=== PATIENT | female | born 1975 | race Caucasian/White ===

== ENCOUNTER 2021-02-18 22:06 | Emergency (ER) | payer SELFPAY ==
[2021-02-18 22:11] VITALS: BP 161/92; PULSE 96; RESP 18; TEMP 36.4; O2SAT 97; BMI 38.4
--- NOTE | 2021-02-18 23:04 | ED_ITS ---
HPI - General Adult General Chief complaint: General Medical Stated complaint: Breast pain Time Seen by Provider: 02/18/21 23:04 Source: patient Mode of arrival: ambulatory History of Present Illness HPI narrative: 45-year-old female who presents with an isolated episode of blood from right nipple and then noticed a small raised area at the nipple ?opening?. She denies any family history of breast cancer, denies any history of smoke cig arette smoking or prior mammograms. Related Data Allergies Allergy/AdvReac Type Severity Reaction Status Date / Time lidocaine [LIDOCAINE] Allergy Mild SHORTNESS Verified 02/18/21 22:11 OF BREATH Review of Systems Review of Systems: Pertinent positives and negatives as stated in HPI and 10 point review of systems is otherwise negative. [facility] Past Medical History Source: nursing notes reviewed Medical History Obese Social History Social History Alcohol intake: unknown Smoking Status: Never smoker Substance Use Type: Unknown Advance Directives: No Advance Directives Information Provided: Yes Patient : No Physical Exam Vital Signs: Vital Signs: Last Vital Signs Temp 97.6 F 02/18/21 22:11 Pulse 96 02/18/21 22:11 Resp 18 02/18/21 22:11 BP 161/92 H 02/18/21 22:11 Pulse Ox 97 02/18/21 22:11 Body Mass Index 38.4 VITAL SIGNS: Reviewed. GENERAL: Well developed, well nourished, in no acute distress. HEAD: Normocephalic/atraumatic EYES: PERRLA, EOMI OROPHARYNX: no oral lesions noted, posterior pharynx clear NECK: Supple, no adenopathy LUNGS: Normal breath sounds. No adventitious sounds or accessory muscle use. SpO2<97> RIGHT BREAST: [Sil[place] Brusher-Lindsay] There is a noted red swelling at the 10 o'clock position of the nipple without ability to express any fluid, no erythema/induration/peau de orange CARDIOVASCULAR: Regular rate and rhythm without noted murmurs ABDOMEN: Obese, Soft, non-tender, non-distended with bowel sounds. NEUROLOGIC: Alert and oriented x 4. Course Course Course Narrative: 45-year-old female with history and clinical presentation concerning for small defect and the fact that patient reports small amount of blood from nipple earlier. Although there is no evidence nipple discharge at this time to include no evidence of infection. Patient strongly encouraged to have this further evaluated and possibly biopsied. She was encouraged to follow-up with either primary care provider which could include a nougat candy maker helper. Patient was provided with a list of primary care providers that she would be able to establish care with. Discharge Plan Discharge Clinical Impression: Abnormal nipple Patient Disposition: Home, Self-Care Instructions: Breast Mass (ED), Nipple Discharge (ED) Additional Instructions: Return to the emergency room for any acute worsening of your symptoms. Referrals: [facility] [Outside] - 2 days (Evaluation for right nipple abnormality)
== END 2021-02-18 23:37 | disposition home or self-care (01) ==
PROVIDERS: Emergency Provider Student in an Organized Health Care Education/Training Program
DX: N63.11 Unspecified lump in the right breast, upper outer quadrant (principal); E66.9 Obesity, unspecified
CPT/HCPCS: 99284

== ENCOUNTER 2021-09-19 18:55 | Emergency (ER) | payer SELFPAY ==
--- NOTE | ~2021-09-19 | XR_ITS ---
EXAMINATION: XR ANKLE, RIGHT CLINICAL INFORMATION: Right ankle injury TECHNIQUE: AP, lateral, and mortise views of the right ankle. FINDINGS: There is soft tissue swelling bilaterally, lateral greater than medial. Ankle mortise appears stable. No joint effusion is detected. No fracture is seen. XR/XR ankle RT min 3V IMPRESSION: Soft tissue swelling without fracture.
[2021-09-19 19:47] VITALS: BP 144/97; PULSE 86; RESP 18; TEMP 36.6; O2SAT 97; BMI 38.8
--- NOTE | 2021-09-19 19:59 | ED.LOWEXIN ---
HPI - Extremity Injury (Lower) General Chief Complaint: Extremity Injury, Lower Stated Complaint: ankle injury Source: patient Mode of arrival: ambulatory Limitations: no limitations History of Present Illness HPI Narrative: 46-year-old female presents with right ankle pain and swelling after twisting the ankle on Thursday. She is able to ambulate but with difficulty. complaint: ankle injury Onset (ago): day(s) (5) Type of Injury: inversion Place: street/outdoors Severity: moderate Severity scale (1-10): 6 Relieving factors: nothing Exacerbating factors: weight bearing, movement and palpation Context: walking Associated symptoms: swelling and able to partially bear weight Other symptoms: none Treatments prior to arrival: cold therapy and NSAIDS Related Data Allergies Allergy/AdvReac Type Severity Reaction Status Date / Time lidocaine [LIDOCAINE] Allergy Mild SHORTNESS Verified 02/18/21 22:11 OF BREATH Review of Systems Review of Systems: Constitutional: No Fever, No Chills ENT/Mouth: No Ear Pain, No Hoarseness, No sore throat Eyes: No Eye Pain, No Swelling, No Redness, No Foreign Body Cardiovascular: No Chest Pain, No SOB Respiratory: No Cough, No Dyspnea Gastrointestinal: No Nausea, No Vomiting, No Diarrhea, No abdominal Pain Genitourinary: No Dysuria, No Hematuria Musculoskeletal: positive right ankle swelling and pain, No Myalgias, No Joint Swelling Skin: No Skin lacerations, No rash Neuro: No Weakness, No Numbness, No Paresthesias, No Loss of Consciousness, No Dizziness, No Headache Psych: No Anxiety/Panic, No Depression Heme/Lymph: no easy bruising, no Lymphadenopathy Endocrine: No Polyuria, No Polydipsia Yes all other systems are reviewed and are negative [facility] Past Medical History Attestation statement: The following information was validated with the patient. Source: old records reviewed Medical History Obese Vitamin B12 deficiency Social History Social History Alcohol intake: unknown Substance Use Type: Unknown Advance Directives: No Advance Directives Information Provided: Yes Patient : No Physical Exam Vital Signs: Vital Signs: Last Vital Signs Temp 97.8 F 09/19/21 19:47 Pulse 86 09/19/21 19:47 Resp 18 09/19/21 19:47 BP 144/97 H 09/19/21 19:47 Pulse Ox 97 09/19/21 19:47 BMI result Body Mass Index 38.8 Appearance: Alert. Oriented X3. No acute distress. Eyes: Pupils equal, round and reactive to light. ENT: Pharynx normal. Neck: Normal inspection. Neck supple. CVS: Normal heart rate and rhythm. Pulses normal. Respiratory: No respiratory distress. Breath sounds normal. Abdomen: Soft and nontender. Skin: Skin warm and dry. Normal skin color. Normal skin turgor. Extremities: Decreased flexion and extension internal external rotation to the right lower extremity. Brisk capillary refill and equal pedal pulses. Neuro: No motor deficit. No sensory deficit. Cranial nerves 2-12 intact. Course Course Course Narrative: 46-year-old female presents with a twisted ankle to the right side. Ankle visibly swollen, tender to bilateral malleolar processes and has decreased range of motion with flexion extension internal and external rotations secondary to swelling and pain. X-ray shows soft tissue swelling without fracture. Plan of care is for Rizwan wrap and air stirrup splint. Will provide crutches. Patient verbalized understanding of and agrees to plan of care discharge home. MDM - Extremity Injury (Lower) Differential Diagnosis Differential diagnosis: Likely ankle sprain and strain and ankle fracture Medical Records Attestation: I reviewed the patient's medical records. Imaging Data Ankle x-ray: Attestation: I personally reviewed and interpreted this imaging study as follows: Radiologist's impression: EXAMINATION: XR ANKLE, RIGHT CLINICAL INFORMATION: Right ankle injury? TECHNIQUE: AP, lateral, and mortise views of the right ankle. FINDINGS: There is soft tissue swelling bilaterally, lateral greater than medial. Ankle mortise appears stable. No joint effusion is detected. No fracture is seen.? XR/XR ankle RT min 3V IMPRESSION: Soft tissue swelling without fracture. Discharge Plan Discharge Clinical Impression: Ankle sprain and strain Patient Disposition: Home, Self-Care Instructions: Ankle Sprain (ED), Crutch Instructions (ED), Ankle Stirrup Splint (ED), R.I.C.E. Treatment (ED) Additional Instructions: You were evaluated for right ankle swelling and pain. X-rays are negative for fracture but does show swelling consistent with grade 2 ankle sprain. Please ice, elevate, and use Tylenol and Motrin as needed for pain management. Use crutches as needed. Use Rizwan wrap and air cast for support. If pain persists longer than 1 week follow up with primary care or you may consider calling Orthopedics for an evaluation. I referred you to Bianca Sánchez orthopedic PA. please call and request an appointment as needed. Thank you for choosing this emergency department for evaluation. Please follow-up with primary care physician as needed. Return to the emergency department for any new, concerning, or worsening symptoms. Referrals: Bianca Sánchez PA-C [Physician Meter/Relay Technician] - 2 days (Right ankle sprain) Stand Alone Forms: Work/School Release Interventions: ED Discharge Assessment Last Done: 09/19/21 21:38 Discharge Date/Time: 09/19/21 21:42
== END 2021-09-19 21:42 | disposition home or self-care (01) ==
PROVIDERS: Emergency Provider Internal Medicine
DX: S93.401A Sprain of unspecified ligament of right ankle, initial encounter (principal); S96.911A Strain of unspecified muscle and tendon at ankle and foot level, right foot, initial encounter; X50.1XXA Overexertion from prolonged static or awkward postures, initial encounter; Y93.01 Activity, walking, marching and hiking; Y92.414 Local residential or business street as the place of occurrence of the external cause; Y99.9 Unspecified external cause status
CPT/HCPCS: 73610; 99283; 99284

== ENCOUNTER 2022-06-10 20:11 | Emergency (ER) | payer BC, SELFPAY ==
[2022-06-10 20:14] VITALS: BP 147/92; PULSE 98; RESP 18; TEMP 37.2; O2SAT 97; BMI 37.6
[2022-06-10 22:49] VITALS: BP 161/93; PULSE 74; RESP 18; TEMP 36.6; O2SAT 98
[2022-06-10] MEDS: predniSONE 20 MG TABLET 60 MG PO (22:51)
[2022-06-10] MEDS: Loratadine 10 MG TABLET PO (22:52)
--- NOTE | 2022-06-10 23:00 | ED.ALLEREA ---
HPI - Allergic Reaction General Chief complaint: Allergic Reaction Stated complaint: Hives Time Seen by Provider: 06/10/22 22:20 History of Present Illness HPI narrative: Patient complains of itchy rash over body started 2 days ago, may have been from a new laundry detergent but she is not sure, no difficulty breathing no feeling dizzy no swelling of lips or tongue or anywhere in the throat Related Data Previous Rx's Medication Instructions Recorded cetirizine 10 mg tablet 10 mg PO DAILY PRN rash #30 tabs 06/10/22 famotidine 20 mg tablet (Pepcid) 20 mg PO DAILY PRN rash #10 tabs 06/10/22 prednisone 20 mg tablet 40 mg PO DAILY 2 days #4 tabs 06/10/22 Allergies Allergy/AdvReac Type Severity Reaction Status Date / Time lidocaine [LIDOCAINE] Allergy Mild SHORTNESS Verified 02/18/21 22:11 OF BREATH Review of Systems Review of Systems: Positive for skin rash Negative no fever no chills no dizziness or weakness no fainting no feeling faint no headache no neck pain no difficulty breathing or swallowing no swelling in the throat mouth or tongue, no changes to the voice no drooling no neck pain no chest pain no shortness of breath no difficulty breathing no nausea or vomiting no joint swelling Yes all other systems are reviewed and are negative PMFSH Past Medical History Source: nursing notes reviewed Medical History Obese Vitamin B12 deficiency Social History Social History Alcohol intake: unknown Substance Use Type: Unknown Advance Directives: No Advance Directives Information Provided: No Physical Exam ED Vital Signs: Vital Signs - 24 hr 06/10/22 20:14 06/10/22 22:49 Temperature 98.9 F 97.9 F Pulse Rate 98 74 Respiratory Rate 18 18 Blood Pressure 147/92 H 161/93 H Pulse Oximetry 97 98 Oxygen Delivery Method Room Air Room Air BMI result Body Mass Index 37.6 General appearance no acute distress, comfortable Eyes no redness no discharge Nose not congested The pharynx no swelling of lips tongue or uvula, no drooling, voice is normal, no impairment of breathing or swallowing, membranes are moist Neck is supple Chest is clear to auscultation bilateral with full symmetrical breath sounds no adventitious sounds Heart no murmur Extremities full range of motion x4 Skin there is a diffuse urticarial rash, skin is intact, no blistering no bullae, no purpura Course Course Course Narrative: Patient with hives with no other complication no difficulty breathing no facial swelling was treated with prednisone and antihistamine and discharged Discharge Plan Discharge Clinical Impression: Urticaria Patient Disposition: Home, Self-Care Additional Instructions: The hives are likely from an allergic reaction to something but we do not know what You can take Zyrtec 10 mg 1 tablet once a day, but if that is not adequate you can double the dose for several days to 20 mg once a day or 10 mg once in the morning and once again in the evening The maximum is 20 mg every 24 hours We are also using prednisone steroid for 2 more days Pepcid may be helpful to Follow with your doctor if needed Return to the ER any time for difficulty breathing, throat swelling, any worse condition or any concerns Prescriptions: New cetirizine 10 mg tablet 10 mg PO DAILY PRN (Reason: rash) Qty: 30 0RF famotidine [Pepcid] 20 mg tablet 20 mg PO DAILY PRN (Reason: rash) Qty: 10 0RF prednisone 20 mg tablet 40 mg PO DAILY 2 Days Qty: 4 0RF Stand Alone Forms: Work/School Release Interventions: ED Discharge Assessment Last Done: 06/10/22 23:53
== END 2022-06-11 00:29 | disposition home or self-care (01) ==
PROVIDERS: Emergency Provider Emergency Medicine Emergency Medical Services; PCP Internal Medicine
DX: L50.9 Urticaria, unspecified (principal)
CPT/HCPCS: 99282; 99283

== ENCOUNTER 2023-08-08 12:16 | Outpatient (AMB) | payer BC, SELFPAY ==
[2023-08-08 12:30] VITALS: BP 124/76; PULSE 95; O2SAT 99; BMI 39.0
--- NOTE | 2023-08-08 12:30 | MHC.OFFWIV ---
Intake Vital Signs 08/08/23 12:30 Height 5 ft 9 in Weight 264 lb BMI 39.0 BP 124/76 Blood Pressure Location Rt brachial Position Sitting Pulse 95 Pulse Source Pulse Oximeter Pulse Oximetry (%) 99 Oxygen Delivery Method Room Air Intake Visit Reasons: EP Rash Intake Note: Pt is here today c/o bilateral groin rash x2mo. and buttocks area very itchy Patient Tobacco Use Status: Never used Tobacco Allergies lidocaine [LIDOCAINE] Allergy (Mild, Verified 08/08/23 12:30) SHORTNESS OF BREATH Do you need a note to return to daycare/school/sports/work: No HPI EP Rash HPI Details Patient is a 47-year-old female comes to the walk-in clinic complaining of an itchy rash to her groin area, that extends around her perineal area as well as between her buttocks. She states that it has been worsening for the last 2 months. She had little relief with nystatin powder, as well as other [id number] medication. Reviewed past medical history [facility] Medical History (Updated 04/16/23 @ 16:23 by DAYANNA Gonzalez) Vitamin B12 deficiency Obese Surgical History (Updated 04/16/23 @ 15:57 by DAYANNA Gonzalez) History of surgery of head Family History (Updated 04/16/23 @ 16:02 by DAYANNA Gonzalez) Father Liver cirrhosis Mother TIA (transient ischemic attack) Social History Housing: House Alcohol intake: unknown Patient Tobacco Use Status: Never used Tobacco Substance Use Type: Unknown service: No Current occupational status: employed Cognitive needs: No Hearing needs: No Vision needs: No Review of Systems Const All systems reviewed & are unremarkable except as noted in HPI and below Physical Exam Vital Signs: Last Vital Signs Pulse 95 08/08/23 12:30 BP 124/76 08/08/23 12:30 Pulse Ox 99 08/08/23 12:30 Oxygen Delivery Method Room Air 08/08/23 12:30 BMI result Body Mass Index 39.0 Skin Other: Hyperpigmented and erythematous areas under her pannus, to bilateral anterior groin areas, and extending around perianal areas in between her buttocks. It is moist and has a wet discharge, no particular odor. Assessment & Plan Assessment & Plan (1) Intertrigo: Code(s): L30.4 - Erythema intertrigo Plan: I think patient has intertrigo, and we discussed overall keeping the area dry, as well as preventing friction of the skin folds. She is actively trying to lose weight, and has been increasing her physical exertion, which has increased her sweating. We discussed using absorbent clothing material such as Flores and to separate her skin folds. she can continue a hypoallergenic soap to the area, and after drying the orally, I will start her with topical ketoconazole cream. She has already tried nystatin powder and this did not resolve symptoms. she will follow-up with oxyacetylene torch operator if it seems like this is not resolving her symptoms, she can trial an oral medication at that point. Or if symptoms worsen in the meantime, she can come back here. Medications: New clotrimazole 1% 1 appl topical BID 56.7 grams 1RF 2 weeks Coding Level of Care Code Est Pt Level 4 (35099) Diagnoses Intertrigo L30.4
== END 2023-08-08 14:05 | disposition home or self-care (01) ==
PROVIDERS: PCP Nurse Practitioner Family; Visit Provider Physician Assistant Medical
DX: L30.4 Erythema intertrigo (principal)
CPT/HCPCS: 99214